=== PATIENT | male | born 1950 | race Caucasian/White ===

== ENCOUNTER 2021-11-16 08:43 | Outpatient (CLI) | payer MEDICARE ==
[2021-11-16 10:00] LABS: Hemoglobin 13.3 g/dL (13.5-17.5); Mean Corpuscular HGB CONC 33.3 g/dL (32.0-36.0); Mean Corpuscular Hemoglobin 31.1 pg (27.0-33.0); Mean Corpuscular Volume 93.2 fl (81.2-95.1); Mean Platelet Volume 10.5 fl (7.4-10.4); Platelet Count 177 10x3/uL (150-450); RBC Distribution Width 13.2 % (11.5-14.5); Red Blood Cell (RBC) Count 4.28 10x6/uL (4.32-5.72); White Blood Cell (WBC) Count 6.6 10x3/uL (3.5-10.5)
[2021-11-16 10:41] LABS: Anion Gap 13 mmol/L (10-20); BUN (Urea Nitrogen) 16 mg/dL (8.4-25.7); Calc. Creatinine Clearance 0 mL/min (70-130); Carbon Dioxide 25 mmol/L (23-31); Chloride 109 mmol/L (98-107); Glucose 102 mg/dL (80-115); Potassium 5.2 mmol/L (3.5-5.1); Sodium 142 mmol/L (136-145)
[2021-11-16 22:41] LABS: SARS-CoV-2 PCR by NAA Not Detected (NotDetected)
== END 2021-11-16 08:44 | disposition home or self-care (01) ==
LOC: CSHLAB 08:43
PROVIDERS: ATTEND Otolaryngology Otolaryngic Allergy
DX: Z01.818 Encounter for other preprocedural examination (principal); Z20.822 Contact with and (suspected) exposure to COVID-19; R49.0 Dysphonia
CPT/HCPCS: 80048; 85027; 93005; 93010; U0003; U0005

== ENCOUNTER 2021-11-21 06:06 | Day surgery (SDC) | payer MEDICARE ==
[2021-11-16 15:09] VITALS: BMI 50.1
[2021-11-21] MEDS ORDERED: SUGAMMADEX SODIUM 200 MG/2 ML VIAL ONE (07:11)
[2021-11-21] MEDS ORDERED: Lidocaine 1% MPF 2 ML VIAL ONE (07:54)
[2021-11-21] MEDS ORDERED: Rocuronium Bromide 10 MG/ML (10ML VIAL) ONE (08:09)
[2021-11-21] MEDS ORDERED: Lidocaine 1% PF 5 ML VIAL ONE (08:09)
[2021-11-21] MEDS ORDERED: Fentanyl 100 MCG/2 ML VIAL ONE (08:09)
[2021-11-21] MEDS ORDERED: Ondansetron PF 4 MG/2 ML Vial ONE (08:09)
[2021-11-21] MEDS ORDERED: Glycopyrrolate 0.2 MG/ML 5 ML SYRINGE ONE (08:09)
[2021-11-21] MEDS ORDERED: PROPOFOL 80 ML ONE (08:09)
[2021-11-21] MEDS ORDERED: Dexamethasone 20 MG/5 ML VIAL ONE (08:09)
[2021-11-21] MEDS ORDERED: Midazolam HCl 2 mg/2 ml Vial ONE (08:09)
[2021-11-21] MEDS ORDERED: EPINEPHrine 1 MG/ML AMP ONE (08:10)
== END 2021-11-21 10:15 | disposition home or self-care (01) ==
LOC: CSHSDC 06:06
PROVIDERS: ATTEND Otolaryngology Otolaryngic Allergy
PROC: 0CBV8ZX Excision of Left Vocal Cord, Via Natural or Artificial Opening Endoscopic, Diagnostic (ICD-10-PCS; principal; 2021-11-21)
PROC: 0CBT8ZX Excision of Right Vocal Cord, Via Natural or Artificial Opening Endoscopic, Diagnostic (ICD-10-PCS; 2021-11-21)
DX: C32.0 Malignant neoplasm of glottis (principal); Z79.899 Other long term (current) drug therapy; Z87.891 Personal history of nicotine dependence; I10 Essential (primary) hypertension
CPT/HCPCS: 88305; 88331; 88342; J0171; J1100; J2250; J2405; J2704; J3010